=== PATIENT | female | born 1940 | race Asian ===

== ENCOUNTER 2017-03-13 13:30 | Emergency (ER) | payer MEDICARE, BC ==
--- NOTE | ~2017-03-13 | ER ---
PATIENT'S NAME: [facility] AGE: 76 Y [address] ROOM: [place], [place] [address] LOCATION: [facility] ADMIT DATE: 03/13/2017 ER/Outpatient Report DISCHARGE DATE: 03/13/2017 FAMILY PHYSICIAN: Son You MD ATTENDING PHYSICIAN: Angel Castillo Time of Arrival: 1341 hours. Time of Exam: 1341 hours. CHIEF COMPLAINT: Nausea and vomiting. HISTORY OF PRESENT ILLNESS: The patient states she has been sick since 03/08/2017. She did see Dr. You on Wednesday and then again on . Did get started on some doxycycline and has had 3 doses and also took some Mucinex DM, states she got a shot both days. Tonight, she became nauseated and vomited twice, states what she vomited was primarily all phlegm and states she had been coughing prior to that happening. She states she feels weak and tired, but states she has not been eating very well either. Has had chills off and on. Last bowel movement was today. ALLERGIES: PENICILLIN. CURRENT MEDICATIONS: On the chart and were reviewed by me. PAST MEDICAL HISTORY: Rrm-kuvpcix-kezppiyaw diabetes, hypertension, and elevated cholesterol. PAST SURGERIES: Hysterectomy. SOCIAL HISTORY: She denies use of tobacco, drugs, or alcohol. She presents to the ER accompanied by her . REVIEW OF SYSTEMS: Negative other than those mentioned in the HPI. PHYSICAL EXAMINATION: VITAL SIGNS: She weighed 50.3 kg. Blood pressure is 154/71, pulse is 76, respirations are 18, temperature of 97.3, and O2 saturation was 99% on room air. [place] Coma Scale is 15. PATIENT'S NAME: K[facility]EN [facility] AGE: 76 Y [address] ROOM: [place], [place] [address] LOCATION: [facility] ADMIT DATE: 03/13/2017 ER/Outpatient Report DISCHARGE DATE: 03/13/2017 FAMILY PHYSICIAN: Son You MD ATTENDING PHYSICIAN: Angel Castillo GENERAL: She is awake, alert, and oriented x4. SKIN: [place], warm, and dry. RESPIRATIONS: Even and nonlabored. LUNGS: Lung sounds are coarse throughout. No wheezing is noted. HEART: Regular rate and rhythm. ABDOMEN: Soft, nondistended. Bowel sounds are present. EMERGENCY DEPARTMENT COURSE: Saline lock was initiated. She was given Zofran 4 mg IV. LABORATORY DATA AND X-RAYS: Lab work was drawn. CBC shows a white count of 3.1, hemoglobin 12.2, hematocrit of 34.6. Chem Panel: Sodium is 138, potassium is 3.1, chloride is 97, glucose is 148, BUN is 22 with a creatinine of 1.6. Her proBNP was 53, lactate was 2.8, and procalcitonin was normal. EMERGENCY ROOM COURSE: I did start fluids of normal saline at 100 mL an hour. Chest x-ray was completed, no acute process is noted. The patient was given a DuoNeb nebulizer treatment, which did help open up her lungs better. Vital signs remained stable throughout the ER stay. IMPRESSION: Bronchitis. PLAN: Home, rest. Continue the doxycycline and Mucinex DM. We will start her on some prednisone. If her symptoms do not improve within the next 24-48 hours, I encouraged her to follow up with Dr. You. She and her verbalized understanding. WESLEY WHITE APRN FOR MD LOW BERNAL/kendra /[id number] d: 03/13/170 t: 03/23/17 0632, OUTPATIENT REPORT
[2017-03-13 14:17] LABS: HEMATOCRIT 34.6 % (33.0-46.0); HEMOGLOBIN 12.2 g/dL (10.0-15.0); MCH 26.7 pg (27.0-34.0); MCHC 35.3 gm/dL (32.0-36.5); MCV 75.7 fl (83.0-98.0); MPV 10.9 fl (9.4-12.4); PLATELET COUNT 175 K/uL (150-450); RBC 4.57 M/uL (3.50-5.50); RDW-CV 12.8 % (11.9-14.6); WBC 3.1 K/uL (4.0-11.0)
[2017-03-13 14:36] LABS: ALBUMIN 3.5 gm/dL (3.5-5.0); ANION GAP 14.1 (10.0-19.0); CALCIUM 7.6 mg/dL (8.5-10.5); CREATININE 1.6 mg/dL (0.5-1.1); POTASSIUM 3.1 mMol/L (3.7-5.1); TOTAL BILIRUBIN 0.4 mg/dL (0.0-1.5); TOTAL PROTEIN 7.6 g/dL (6.0-8.4)
[2017-03-13 14:49] LABS: ABSOLUTE NEUTROPHIL CT (ANC) 1.6 K/uL (1.8-7.8); BANDED NEUTROPHIL # 0.1 K/uL (0.0-0.1); BANDED NEUTROPHILS % 4 %; LYMPHOCYTE % 33 %; MONOCYTE # 0.5 K/uL (0.0-1.0); SEGMENTED NEUTROPHIL # 1.5 K/uL (1.8-7.8); SEGMENTED NEUTROPHIL % 47 %
== END 2017-03-13 15:25 | disposition disaster alternative care site (69) ==
LOC: GMED 13:30
PROVIDERS: Nurse Practitioner Family
DX: J40 Bronchitis, not specified as acute or chronic (principal); I10 Essential (primary) hypertension; E11.9 Type 2 diabetes mellitus without complications; E78.00 Pure hypercholesterolemia, unspecified; Z90.710 Acquired absence of both cervix and uterus; Z88.0 Allergy status to penicillin; Z79.84 Long term (current) use of oral hypoglycemic drugs; Z79.899 Other long term (current) drug therapy
CPT/HCPCS: J2405; J7030